=== PATIENT | male | born 1960 ===

== ENCOUNTER 2021-06-17 14:22 | Inpatient (IN) | payer OTHER ==
[~2021-06-17] VITALS: Ht 188 cm; Wt 90.7 kg
[2021-06-17] MEDS ORDERED: IV NORMAL SALINE 1000 ML BAG IV ONE ×2 (14:45)
[2021-06-17 15:24] LABS: HEMATOCRIT 40.4 % (36.7-47.1); MEAN CORPUSCULAR HEMOGLOBIN 30.6 uug (23.8-33.4); MEAN CORPUSCULAR VOLUME 89.4 fL (73.0-96.2); PLATELET COUNT (AUTO) 240 K/uL (152-348)
[2021-06-17] MEDS ORDERED: HALOPERIDOL LACTATE 5 MG/1 ML VIAL IM ONE ×2 (15:30→20:30)
[2021-06-17] MEDS ORDERED: diphenhydrAMINE 50 MG/1 ML VIAL IV ONE (15:30)
[2021-06-17 15:37] LABS: *BILIRUBIN,URIN NEGATIVE (NEGATIVE); *BLOOD, URINE NEGATIVE (NEGATIVE); *CLARITY,URINE CLEAR (CLEAR); *COLOR,URINE YELLOW (YELLOW); *KETONES,URINE NEGATIVE (NEGATIVE); ETHANOL < 3 MG/DL (0-0); LEUKOCYTE ESTERASE ,URINE NEGATIVE (NEGATIVE); NITRITE, URINE NEGATIVE (NEGATIVE); UGLUCOSE NEGATIVE (NEGATIVE)
[2021-06-17] MEDS ORDERED: HALOPERIDOL LACTATE 5 MG/1 ML VIAL ONE ×3 (15:38→20:57)
[2021-06-17] MEDS ORDERED: diphenhydrAMINE 50 MG/1 ML VIAL ONE (15:39)
[2021-06-17 15:42] LABS: ALANINE AMINOTRANSFERASE 19 U/L (16-63); ALKALINE PHOSPHATASE 93 U/L (50-136); ASPARTATE AMINOTRANSFERASE 22 U/L (15-37); BILIRUBIN,DIRECT 0.2 mg/dL (0.0-0.2); BILIRUBIN,TOTAL 0.5 mg/dL (0.2-1.0); CARBON DIOXIDE 28 mmol/L (21-32); CHLORIDE 103 mmol/L (98-107); CREATININE 1.2 mg/dL (0.6-1.3); GLUCOSE 86 mg/dL (74-106); POTASSIUM 4.3 mmol/L (3.5-5.1); TOTAL PROTEIN, SERUM 6.8 g/dL (6.4-8.2); UREA NITROGEN, BLOOD 15 mg/dL (7-18)
[2021-06-17 15:43] LABS: ACETAMINOPHEN < 2.0 ug/mL (10-30)
[2021-06-17 15:49] LABS: THYROID STIMULATING HORMONE 1.339 mIU/mL (0.358-3.740)
[2021-06-17 15:50] LABS: *AMPHETAMINE, URINE POSITIVE (NEGATIVE); *CANNABINOID, URINE POSITIVE (NEGATIVE); *COCCAINE, URINE NEGATIVE (NEGATIVE); *OPIATE, URINE NEGATIVE (NEGATIVE); *PHENCYCLIDINE SCREEN,URINE NEGATIVE (NEGATIVE)
[2021-06-17] MEDS ORDERED: LORAZEPAM 2 MG/1 ML VIAL ONE ×3 (17:01→22:21)
[2021-06-17] MEDS ORDERED: LORAZEPAM 2 MG/1 ML VIAL IV ONE ×3 (17:15→22:15)
--- NOTE | 2021-06-17 17:15 | NUR ---
pt was sitting up, screaming and trying to walk away from bed, won't sit still. MD aware gave order for 2mg Ativan, IV.
--- NOTE | 2021-06-17 20:18 | NUR ---
Patient out of bed security at bedside, Patient screaming and trying to walk away from room, won't sit still. MD aware with orders. Patient assisted back to bed.
--- NOTE | 2021-06-17 20:20 | NUR ---
PATIENT YELLING UNABLE TO CONTRACT FOR SAFETY, BEATS ON THE BED, COMBATIVE. PER [place] MANAGER MADE AWARE NO SITTER AVAILABLE AT THIS TIME.
[2021-06-17] MEDS ORDERED: HALOPERIDOL LACTATE 5 MG/1 ML VIAL IV ONE ×3 (20:30→22:15)
--- NOTE | 2021-06-17 23:00 | NUR ---
FLUIDS OFFERED PATIENT TOOK SIPS
[2021-06-18] MEDS ORDERED: OLANZAPINE 10 MG VIAL IM ONE ×4 (01:30→03:57)
[2021-06-18] MEDS ORDERED: LORAZEPAM 2 MG/1 ML VIAL IV ONE ×2 (01:30→03:45)
--- NOTE | 2021-06-18 02:00 | NUR ---
PATIENT IN BED NO S/S ANY DISTRESS STILL UNABLE TO MAKE NEEDS KNOW ONLY SCREAMING WE ASKED NAME/BIRTHDAY. FLUIDS GIVE PATIENT TOOK SIPS OF WATER. WILL CONTINUE TO MONITOR.
[2021-06-18] MEDS ORDERED: LORAZEPAM 2 MG/1 ML VIAL ONE ×3 (02:18→04:02)
--- NOTE | 2021-06-18 03:00 | NUR ---
FLUIDS OFFERED PATIENT TOOK SIPS
--- NOTE | 2021-06-18 05:00 | NUR ---
FLUIDS OFFERED PATIENT TOOK SIPS
--- NOTE | 2021-06-18 07:00 | NUR ---
PATIENT ABLE TO TURN SELF IN BED
--- NOTE | 2021-06-18 09:00 | NUR ---
PATIENT TURN SELF IN BED.
--- NOTE | 2021-06-18 09:05 | NUR ---
Called [facility] for panel call, corey arzola was paged
[2021-06-18] MEDS ORDERED: ONDANSETRON 4 MG/2 ML VIAL IV PRN (09:30)
[2021-06-18] MEDS ORDERED: Z GUARD REMEDY PASTE 57 GM TUBE TOP PRN (09:30)
[2021-06-18] MEDS ORDERED: MAGNESIUM HYDROXIDE 30 ML LIQUID UDC PO PRN (09:30)
[2021-06-18] MEDS ORDERED: DIAZEPAM 10 MG/2 ML DISP.SYRIN IV PRN (09:30)
--- NOTE | 2021-06-18 09:30 | NUR ---
Per pt has been accepted for m/s admission at this facility. Called ms/tele floor for bed assignment, was told there are no beds available due to lack of staffing. Pt remains easily agitated with minimal stimulatioin, yells out and tries to get out of bed constantly. Sitter has been at bedside since 0700 for 1:1 observation for safety.
--- NOTE | 2021-06-18 11:00 | NUR ---
PATIENT IN BED ABLE TO TURN SELF.
--- NOTE | 2021-06-18 13:00 | NUR ---
Room 325 assigned for pt for admission to m/s floor, Nirmala Graham accepted the pt.
--- NOTE | 2021-06-18 13:00 | NUR ---
PATIENT ABLE TO TURN SELF IN BED.
--- NOTE | 2021-06-18 13:30 | NUR ---
Gris Arboleda (director of psych services) came to ER and stated pt can not be admitted to m/s floor. Pt to be held in ER until further notice.
--- NOTE | 2021-06-18 15:00 | NUR ---
PATIENT ABLE TO TURN SELF.
--- NOTE | 2021-06-18 15:45 | NUR ---
Received report from ER from rachel thomas.
--- NOTE | 2021-06-18 16:07 | NUR ---
patient is in gurney, sitter at bed side. patient is flailing arms around, attempting to get out of gurney, patient is confused, not able to state name or any pertinent history. Patient refusing vital signs, he is combative. patient removed IV site, attempted to start a new IV site, patient became angry, began to groan and flail arms around and covered himself with blanket.
[2021-06-18] MEDS ORDERED: DIAZEPAM 10 MG TABLET PO ONE (17:15)
[2021-06-18] MEDS: IV NS 1000 ML 1,000 ML IV PRN (18:05)
--- NOTE | 2021-06-18 19:49 | NUR ---
Patient asleep, sitter at bedside, no IV access d/t patient refusal, will approach situation slowly to avoid any possible outburst
[2021-06-19] MEDS: IV NS 1000 ML 1,000 ML IV PRN ×2 (01:40→17:20)
[2021-06-19 07:46] LABS: HEMATOCRIT 45.6 % (36.7-47.1); MEAN CORPUSCULAR HEMOGLOBIN 31.1 uug (23.8-33.4); MEAN CORPUSCULAR VOLUME 90.7 fL (73.0-96.2); PLATELET COUNT (AUTO) 236 K/uL (152-348)
[2021-06-19 08:00] VITALS: BP 131/78
[2021-06-19 08:17] LABS: CREATININE 1.1 mg/dL (0.6-1.3); MAGNESIUM 2.1 mg/dL (1.8-2.4); POTASSIUM 3.8 mmol/L (3.5-5.1)
[2021-06-19 12:00] VITALS: BP 125/75
[2021-06-19 16:07] VITALS: BP 124/77
--- NOTE | 2021-06-19 19:15 | NUR ---
patient in bed, resting quietly with eyes closed. oriented x4, cooperative with cares and pleasant. asked if he can go to the bathroom and was helped to use the urinal
[2021-06-19 20:00] VITALS: BP 137/70
--- NOTE | 2021-06-19 23:23 | NUR ---
patient asking for tylenol saying that his teeth hurt. he explained that he is having ongoing dental issues. plan of care initiated; continue to monitor.
[2021-06-19] MEDS: ACETAMINOPHEN 325 MG TABLET PO PRN (23:36)
--- NOTE | 2021-06-20 00:15 | NUR ---
assessed patient's oral cavity d/t patient's c/o oral pain. patient has several missing teeth, reddened gums, and possibly a yeast infection. plan of care was added, and will monitor closely
[2021-06-20] MEDS: IV NS 1000 ML 1,000 ML IV PRN (03:44)
[2021-06-20 04:30] VITALS: BP 152/83
[2021-06-20] MEDS: ACETAMINOPHEN 325 MG TABLET PO PRN (05:51)
[2021-06-20 06:47] VITALS: BP 142/84
--- NOTE | 2021-06-20 06:55 | NUR ---
elevated BP 152/83 at 0400 trending up from 124/77 at 1600 on 06/19. to rule out change in BP r/t pain, patient was given 650mg tylenol for oral pain. recheck 40 minutes after tylenol was given; BP 142/84. will continue with plan of care and monitor closely
--- NOTE | 2021-06-20 10:22 | NUR ---
JOE CAMACHO BI REPORT DEVELOPER HERE WITH ORDER FOR PT EVAL AND NOTED D/C PLANNING
--- NOTE | 2021-06-20 11:00 | NUR ---
PHYSICAL THERAPY HERE SEEN PATIENT HE IS ABLE TO AMBULATE WITH STEADY GAIT JOE HERE AND STATED THAT HE WILL DISCHARGE PATIENT TODAY.
--- NOTE | 2021-06-20 11:18 | NUR ---
NOTED ORDER FOR DISCHARGE TODAY WILL START THE DISCHARGE PROCESS
[2021-06-20 11:30] VITALS: BP 127/80
--- NOTE | 2021-06-20 11:41 | NUR ---
CALLED SULLY FERRARI SISTER TO CONFIRM THE ADDRESS THAT PATIENT WILL BE GOING TO [facility] AFTER DISCHARGE STATED THAT SHE IS AT WORK NOW AND WILL NOT BE HOME UNTIL LATER REASSURED HER THAT WE WILL PROVIDE TRANSPORTATION AND SHE ALSO CONFIRMED THAT PATIENT CAN GET INTO THE HOUSE USING A [employer] PAD.STATED PATIENT DOES NOT HAVE A PRIMARY DOCTOR ENCOURAGED HER TO CALL PATIENTS INSURANCE AND GET A LIST OF PRIMARY DOCTORS IN HER AREA AND CHOOSE ONE AND MAKE APPOINTMENT FOR HER BROTHER.SHE WAS FRUSTRATED THAT SHE IS OVERWHELMED AND HAS TO DO EVERYTHING STATED SHE HAS NO HELP SO I ENCOURAGED HER TO CALL HER BROTHERS INDURANCE AND REACH OUT TO THE DYE RANGE FEEDER ASSISGNED TO HIM.
--- NOTE | 2021-06-20 13:05 | NUR ---
CALL RECEIVED FROM THE SALVAGER HELPER RE DISCHARGE PLANS NOTIFIED HER THAT I ALREADY HAVE TAXI VOUCHER AND PATIENT WILL BE PICKED UP AT 1400 AND ALSO THAT HIS SISTER SULLY NEEDS A ORE FEEDER ASSISTANCE WITH HER BROTHER TO SET HIM UP FOR APPOINTMENTS AND POSSIBLE REHAB FOR HIS ADDICTIONS AND DEPENDENCIES AND SHE STATED WILL CONTACT THE INSURANCE OF THE PATIENT TO ASSIST SULLY.
--- NOTE | 2021-06-20 13:10 | NUR ---
CALLED [employer] AND SPOKE WITH EMIR WEBSTER [employer] TRAVEL COUNSELOR FOR THE PATIENT WILL BE PICKED UP BY THE LOBBY AT 1400
--- NOTE | 2021-06-20 13:55 | NUR ---
PATIENT DISCHARGED PICKED UP BY [employer] IN SATISFACTORY CONDITION WITH DISCHARGE INSTRUCTIONS AND ALL HIS PERSONAL BELONGINGS PATIENT INSTRUCTED TO CALL FOR A FOLLOW UP APPOINTMENT WITHIN THE NEXT ONE TO TWO WEEKS AND HE EXPRESSED UNDERSTANDING PATIENTS SISTER SULLY WAS ALSO ADVISED TO ASSIST PATIENT WITH FOLLOWING UP WITH A DOCTOR SOON POSSIBLE PATIENT IS ALERT ORIENTED AND UNDERSTANDING OF THE DISCHARGE INSTRUCTIONS.
== END 2021-06-20 13:55 | disposition home or self-care (01) | DRG 812 ==
LOC: ER 14:22 → MEDSURG3 06-18 13:16
PROVIDERS: ADMIT Nurse Practitioner Acute Care; ATTEND Nurse Practitioner Acute Care
DX: T43.621A Poisoning by amphetamines, accidental (unintentional), initial encounter (principal); G92.8 Other toxic encephalopathy; F15.121 Other stimulant abuse with intoxication delirium; T42.4X1A Poisoning by benzodiazepines, accidental (unintentional), initial encounter; F12.929 Cannabis use, unspecified with intoxication, unspecified; Y92.524 Gas station as the place of occurrence of the external cause; Z78.1 Physical restraint status; Z59.01 Sheltered homelessness
CPT/HCPCS: 36415; 70030-TC; 70450; 71045; 83605; 83735; 84100; 84443; 85025; 87040; 93005; A4663; G0378; G0480; J1200; J1630; J2060; J2358; J7030